=== PATIENT | male | born 1975 | race Caucasian/White ===

== ENCOUNTER 2023-10-28 11:17 | Emergency (ER) | payer OTHER ==
[2023-10-28 12:02] LABS: Absolute Eosinophils 0.2 K/uL (0-0.5); Absolute Lymphocytes (CBC) 3.4 K/uL (0.7-4.9); Absolute Monocytes 0.4 K/uL (0.1-1.3); Basophils % 0.5 % (0-1.3); Hematocrit 46.9 % (39.6-49.0); Lymphocytes % 42.6 % (15.3-44.8); MCH 28.8 pg (27.0-35.0); MCHC 34.2 g/dL (32.0-36.0); MCV 84.3 fL (80-100); MPV 9.3 fL (7.6-11.3); Monocytes % 5.5 % (3.3-12.3); Neutrophils % 49.4 % (41.7-73.7); Platelets 254 thou/uL (152-406); RBC Red Blood Cell Count 5.56 M/uL (4.33-5.43); Red Cell Distribution Width 14.6 % (12.1-15.2)
[2023-10-28 12:18] LABS: Albumin 3.7 g/dL (3.4-5.0); Bilirubin Total 0.6 mg/dL (0.2-1.0); Globulin 3.8 g/dL (2.3-3.5); Protein, Total 7.5 g/dL (6.4-8.2)
[2023-10-28] MEDS ORDERED: ONDANSETRON 4 MG/2 ML VIAL ONE (12:21)
[2023-10-28] MEDS ORDERED: KETOROLAC 30 MG/ML INJ ONE (12:22)
[2023-10-28] MEDS ORDERED: FAMOTIDINE 20 MG/2 ML VIAL IV ONE (12:22)
[2023-10-28] MEDS ORDERED: NA CHLORIDE 0.9% 1,000 ML ONE ×2 (12:22→15:20)
--- NOTE | 2023-10-28 13:50 | RAD REPORT ---
EXAM DESCRIPTION: CT - Abdomen Pelvis Wo Contrast - 10/28/2023 12:05 pm CLINICAL HISTORY: ABD PAIN COMPARISON: No comparisons TECHNIQUE: Thin cut axial CT imaging of the abdomen and pelvis was performed without IV contrast. Mu ltiplanar reformats were generated and reviewed. All CT scans are performed using dose optimization technique as appropriate and may include automated exposure control or mA/KV adjustment according to patient size. FINDINGS: No suspicious findings in the lung bases. The liver, spleen, adrenal glands, and pancreas show no suspicious findings. Gallbladder and biliary tree are also without suspicious finding. Symmetric renal contour, without suspicious parenchymal findings within limits of noncontrast techniq ue. No hydroureteronephrosis. Bilateral nonobstructing renal calculi the largest measuring 5 mm on th e left lower pole. No dilated bowel loops or bowel wall thickening. Mild distal colonic diverticulosis. No free air, ludwin e fluid or inflammatory stranding. Small supraumbilical midline hernia containing fat. No suspicious mass or bulky lymphadenopathy. The urinary bladder is without significant finding. No suspicious bony findings. IMPRESSION: Bilateral nonobstructing renal calculi, largest measuring 5 mm on the left. Incidental findings as above.
[2023-10-28] MEDS ORDERED: MORPHINE 4 MG/ML SYR ONE (14:20)
[2023-10-28 17:06] LABS: Specific Gravity 1.029 (1.005-1.030); Sqamous Epithelial None Seen /HPF (None Seen); Urine Bacteria None Seen /HPF (<20); Urine Bilirubin NEGATIVE (Negative); Urine Blood Negative (Negative); Urine Clarity Clear (Clear); Urine Color Yellow (Yellow); Urine Crystals Unidentified Few /HPF (None Seen); Urine Culture Reflex Order NOT NEEDED; Urine Glucose NEGATIVE (Negative); Urine Ketones NEGATIVE (Negative); Urine Microscopic Reflex YN ORDER UMIC; Urine Mucus 1+ /HPF (None Seen); Urine Nitrite NEGATIVE (Negative); Urine Protein TRACE (Negative); Urine RBC <5 /HPF (None Seen); Urine Urobilinogen Normal (Normal); Urine WBC <5 /HPF (<5)
--- NOTE | 2023-10-28 17:16 | ER ---
Nurse's Notes [facility] Name: Jacob Andrews Age: 48 yrs Sex: Male : 1975 Arrival Date: 10/28/2023 Time: 11:17 Bed DX3 Private MD: Diagnosis: Flank pain;Essential (primary) hypertension Presentation: 10/27 11:27 Chief complaint: Patient states: "For the past 2 years, I've been diagnosed with a mb9 kidney tumor. My right flank hurts and the pain is unbearable. I have a appointment tomorrow with a specialist but it hurts too bad. I feel nauseous". Coronavirus screen: At this time, the client does not indicate any symptoms associated with coronavirus-19. Ebola Screen: No symptoms or risks identified at this time. Initial Sepsis Screen: Does the patient meet any 2 criteria? No. Patient's initial sepsis screen is negative. Does the patient have a suspected source of infection? No. Patient's initial sepsis screen is negative. Risk Assessment: Do you want to hurt yourself or someone else? Patient reports no desire to harm self or others. Onset of symptoms was October 28, 2023. 11:27 Method Of Arrival: [facility] 11:27 Acuity: SYED 3 mb9 Triage Assessment: 11:29 General: Appears uncomfortable, Behavior is cooperative. Pain: Complains of pain in mb9 back Pain radiates to right flank. EENT: No signs and/or symptoms were reported regarding the EENT system. Neuro: Kramer Agitation-Sedation Scale (RASS): 0 - Alert and Calm Level of Consciousness is awake, alert, obeys commands, Oriented to person, place, time, situation, Appropriate for age. Cardiovascular: Patient's skin is warm and dry. Respiratory: Airway is patent Respiratory effort is even, unlabored, Respiratory pattern is regular, symmetrical. GI: Reports nausea. : No signs and/or symptoms were reported regarding the genitourinary system. Derm: Skin is pink, warm \\T\\ dry. Musculoskeletal: Range of motion: intact in all extremities. Historical: - Allergies: 11:28 No Known Allergies; mb9 - Home Meds: 11:28 Lisinopril Oral [Active]; Ozempic subcutaneous [Active]; mb9 - PMHx: 11:28 Diabetes mellitus; Tumor- right kidney; Cerebrovascular accident; Hypertensive disorder;mb9 11:33 Kidney stone; mb9 - PSHx: 11:28 None; mb9 - Immunization history:: Adult Immunizations up to date. - Infectious Disease History:: Denies. - Social history:: Smoking status: Patient reports the use of cigarette tobacco products, smokes one pack cigarettes per day. Screenin:24 [facility] ED Fall Risk Assessment (Adult) History of falling in the last 3 months, as6 including since admission No falls in past 3 months (0 pts) Confusion or Disorientation No (0 pts) Intoxicated or Sedated No (0 pts) Impaired Gait No (0 pts) Mobility Assist Device Used No (0 pt) Altered Elimination No (0 pt) Score/Fall Risk Level 0 - 2 = Low Risk Oriented to surroundings, Maintained a safe environment, Educated pt \\T\\ family on fall prevention, incl call for assistance when getting out of bed, Assessed \\T\\ reinforced patient's understanding of fall precautions. Abuse screen: Denies threats or abuse. Denies injuries from another. Nutritional screening: No deficits noted. Tuberculosis screening: No symptoms or risk factors identified. Assessment: 14:10 Reassessment: provider aware of pain Patient states symptoms have not improved. as6 17:20 Reassessment: Patient appears in no apparent distress at this time. Patient and/or as6 family updated on plan of care and expected duration. Pain level reassessed. Patient is alert, oriented x 3, equal unlabored respirations, skin warm/dry/pink. Patient states feeling better. Vital Signs: 11:27 BP 146 / 92; Pulse 86; Resp 18; Temp 98; Pulse Ox 97% ; Weight 90.72 kg; Height 5 ft. mb9 11 in. ; Pain 10/10; 13:30 BP 154 / 67; Pulse 81; Resp 18; Pulse Ox 99% ; as6 15:30 BP 139 / 72; Pulse 65; Resp 16; Pulse Ox 97% ; as6 17:22 BP 129 / 87; Pulse 75; Resp 18; Pulse Ox 96% ; as6 11:27 Body Mass Index 27.89 (90.72 kg, 180.34 cm) mb9 11:27 Pain Scale: Adult mb9 ED Course: 11:20 Patient arrived in ED. mr 11:21 Guillen, Buck, DO is Attending Physician. ms3 11:28 Triage completed. mb9 11:29 Arm band placed on. mb9 11:55 CBC with Diff Sent. bc6 11:55 CMP Sent. bc6 11:55 Initial lab(s) drawn, by me, sent to lab. Inserted saline lock: 20 gauge in right bc6 forearm, using aseptic technique. Blood collected. 12:01 CT Abd/Pelvis - Without Contrast In Process Unspecified. EDMS 14:24 Bed in low position. Call light in reach. as6 17:19 No provider procedures requiring assistance completed. IV discontinued, intact, as6 bleeding controlled, No redness/swelling at site. Pressure dressing applied. 17:20 Provided Education on: follow up. as6 Administered Medications: 12:27 Drug: NS 0.9% IV 1000 ml IV at 1 bolus Per protocol; 1000 mL bolus Route: IV; Rate: 1 as6 bolus; Site: right forearm; 17:23 Follow up: Response: No adverse reaction; IV Status: Completed infusion; IV Intake: as6 1000ml 12:27 Drug: Famotidine IVP 20 mg IVP once; dilute with 10 mL 0.9% NaCl; give over 2 minutes as6 Route: IVP; Site: right forearm; 17:23 Follow up: Response: No adverse reaction as6 12:28 Drug: TORadol - Ketorolac IVP 15 mg IVP once Route: IVP; Site: right forearm; as6 17:22 Follow up: Response: No adverse reaction as6 12:28 Drug: Ondansetron IVP 4 mg IVP once; over 2 minutes Route: IVP; Site: right forearm; as6 17:22 Follow up: Response: No adverse reaction as6 14:23 Drug: morphine IVP or IV 4 mg IVP once over 4 mins Route: IVP; Infused Over: 4 mins; as6 Site: right forearm; 17:23 Follow up: Response: No adverse reaction as6 15:22 Drug: NS 0.9% IV 1000 ml IV at 1 bolus Per protocol; 1000 mL bolus Route: IV; Rate: 1 as6 bolus; Site: right forearm; 17:23 Follow up: Response: No adverse reaction; IV Status: Completed infusion; IV Intake: as6 1000ml Medication: 14:24 VIS not applicable for this client. as6 Intake: 17:23 IV: 1000ml; Total: 1000ml. as6 17:23 IV: 1000ml; Total: 2000ml. as6 Outcome: 17:16 Discharge ordered by . ms3 17:19 Discharged to home ambulatory, as6 17:19 Condition: stable 17:19 Discharge instructions given to patient, Instructed on discharge instructions, follow up and referral plans. Demonstrated understanding of instructions, follow-up care, 17:23 Patient left the ED. as6 Signatures: Dispatcher [employer] EDMS Jayleen Sharpe, Rusty Ojeda mr GuillenBuck, DO ms3 Carmelo Chaves, RN RN as6 Jayleen Barry RN RN mb9 Laura Russo [facility]
--- NOTE | 2023-10-28 17:16 | EDPHYS ---
Physician Documentation [facility] Name: Jacob Andrews Age: 48 yrs Sex: Male : 1975 Arrival Date: 10/28/2023 Time: 11:17 Bed DX3 Private MD: ED Physician Buck Guillen HPI: 10/27 16:06 This 48 yrs old Male presents to ER via Ambulatory with complaints of Flank Pain. ms3 16:06 48-year-old male with past medical history of diabetes, right kidney tumor, CVA, ms3 hypertension presents to the emergency department for right flank pain that has been going on for 2 years. Patient states pain has become worse. He has an appointment with his urologist tomorrow. Patient states pain is 10/10. He denies any alleviating or inciting factors.. Historical: - Allergies: 11:28 No Known Allergies; mb9 - Home Meds: 11:28 Lisinopril Oral [Active]; Ozempic subcutaneous [Active]; mb9 - PMHx: 11:28 Diabetes mellitus; Tumor- right kidney; Cerebrovascular accident; Hypertensive disorder;mb9 11:33 Kidney stone; mb9 - PSHx: 11:28 None; mb9 - Immunization history:: Adult Immunizations up to date. - Infectious Disease History:: Denies. - Social history:: Smoking status: Patient reports the use of cigarette tobacco products, smokes one pack cigarettes per day. ROS: 16:06 Constitutional: Negative for fever, and chills. Neck: Negative for injury, pain, and ms3 swelling, Cardiovascular: Negative for chest pain, and palpitations. Respiratory: Negative for shortness of breath, cough, wheezing, and pleuritic chest pain, Abdomen/GI: Negative for abdominal pain, nausea, vomiting, diarrhea, and constipation, MS/Extremity: Negative for injury and deformity, Skin: Negative for injury, rash, and discoloration, 16:06 Back: Positive for flank pain, on the right, Exam: 16:06 Constitutional: This is a well developed, well nourished patient who is awake, alert, ms3 and in no acute distress. Chest/axilla: Normal chest wall appearance and motion. Nontender with no deformity. Cardiovascular: Regular rate and rhythm with a normal S1 and S2. No gallops, murmurs, or rubs. Normal PMI, no JVD. No pulse deficits. Respiratory: Lungs have equal breath sounds bilaterally, clear to auscultation and percussion. No rales, rhonchi or wheezes noted. No increased work of breathing, no retractions or nasal flaring. Abdomen/GI: Soft, non-tender, with normal bowel sounds. No distension or tympany. No guarding or rebound. No evidence of tenderness throughout. Skin: Warm, dry with normal turgor. Normal color with no rashes, no lesions, and no evidence of cellulitis. 16:06 Back: pain, that is moderate, of the right mid back, CVA tenderness, that is moderate, is noted on the right, Vital Signs: 11:27 BP 146 / 92; Pulse 86; Resp 18; Temp 98; Pulse Ox 97% ; Weight 90.72 kg; Height 5 ft. mb9 11 in. ; Pain 10/10; 13:30 BP 154 / 67; Pulse 81; Resp 18; Pulse Ox 99% ; as6 15:30 BP 139 / 72; Pulse 65; Resp 16; Pulse Ox 97% ; as6 17:22 BP 129 / 87; Pulse 75; Resp 18; Pulse Ox 96% ; as6 11:27 Body Mass Index 27.89 (90.72 kg, 180.34 cm) mb9 11:27 Pain Scale: Adult mb9 MDM: 11:44 Patient medically screened. ms3 16:06 Differential diagnosis: nephrolithiasis, pyelonephritis, UTI. ms3 17:16 Data reviewed: vital signs, nurses notes, lab test result(s), radiologic studies, and ms3 as a result, I will discharge patient. I considered the following discharge prescriptions or medication management in the emergency department Medications were administered in the Emergency Department. See MAR. Independent interpretation of the following test(s) in the Emergency Department CT Scan: My interpretation is CT abd/pelvis without contrast reviewed does not reveal hydronephrosis. Care significantly affected by the following chronic conditions: Diabetes, Hypertension. Counseling: I had a detailed discussion with the patient and/or guardian regarding the historical points, exam findings, and any diagnostic results supporting the discharge/admit diagnosis, lab results, radiology results, the need for outpatient follow up, to return to the emergency department if symptoms worsen or persist or if there are any questions or concerns that arise at home. Special discussion: I discussed with the patient/guardian in detail that at this point there is no indication for admission to the hospital. It is understood, however, that if the symptoms persist or worsen the patient needs to return immediately for re-evaluation. ED course: Discussed imaging and labs with patient. Patient to follow-up with his urologist tomorrow as scheduled. All questions were answered. Return precautions discussed include worsening symptoms, or any other concerns. On reevaluation patient is alert and orient x 4, no apparent distress, nontoxic-appearing, speaking full sentences. 10/27 11:35 Order name: CBC with Diff; Complete Time: 14:19 ms3 10/27 11:35 Order name: CMP; Complete Time: 14:19 ms3 10/27 11:35 Order name: Urinalysis w/ reflexes; Complete Time: 17:13 ms3 10/27 11:35 Order name: CT Abd/Pelvis - Without Contrast; Complete Time: 14:19 ms3 10/27 11:35 Order name: IV Saline Lock; Complete Time: 11:55 ms3 10/27 11:35 Order name: Labs collected and sent; Complete Time: 11:55 ms3 Administered Medications: 12:27 Drug: NS 0.9% IV 1000 ml IV at 1 bolus Per protocol; 1000 mL bolus Route: IV; Rate: 1 as6 bolus; Site: right forearm; 17:23 Follow up: Response: No adverse reaction; IV Status: Completed infusion; IV Intake: as6 1000ml 12:27 Drug: Famotidine IVP 20 mg IVP once; dilute with 10 mL 0.9% NaCl; give over 2 minutes as6 Route: IVP; Site: right forearm; 17:23 Follow up: Response: No adverse reaction as6 12:28 Drug: TORadol - Ketorolac IVP 15 mg IVP once Route: IVP; Site: right forearm; as6 17:22 Follow up: Response: No adverse reaction as6 12:28 Drug: Ondansetron IVP 4 mg IVP once; over 2 minutes Route: IVP; Site: right forearm; as6 17:22 Follow up: Response: No adverse reaction as6 14:23 Drug: morphine IVP or IV 4 mg IVP once over 4 mins Route: IVP; Infused Over: 4 mins; as6 Site: right forearm; 17:23 Follow up: Response: No adverse reaction as6 15:22 Drug: NS 0.9% IV 1000 ml IV at 1 bolus Per protocol; 1000 mL bolus Route: IV; Rate: 1 as6 bolus; Site: right forearm; 17:23 Follow up: Response: No adverse reaction; IV Status: Completed infusion; IV Intake: as6 1000ml Disposition Summary: 10/28/23 17:16 Discharge Ordered Notes: Location: Home ms3 Condition: Stable ms3 Diagnosis - Flank pain ms3 - Essential (primary) hypertension ms3 Followup: ms3 - With: Private Physician - When: 1 - 2 days - Reason: Recheck today's complaints Discharge Instructions: - Discharge Summary Sheet ms3 - Hypertension, Adult ms3 - Flank Pain, Adult, [id number] ms3 - DASH Eating Plan ms3 Forms: - Medication Reconciliation Form ms3 - Antibiotic Education ms3 - Prescription Opioid Use ms3 - Patient Portal Instructions ms3 - Leadership Thank You Letter ms3 Signatures: Dispatcher [employer] EDBuck Rico DO DO ms3 Carmelo Chaves RN RN as6 Jayleen Barry RN RN mb9 Corrections: (The following items were deleted from the chart) 11:35 11:35 Abdomen Pelvis Wo Con+CT.RAD.BRZ ordered. EDMS EDMS
[2023-10-28 17:45] VITALS: TEMP 98
[2023-10-28 18:05] VITALS: BP 129/87; O2SAT 96
== END 2023-10-28 17:23 | disposition home or self-care (01) ==
LOC: ER 11:17
DX: R10.31 Right lower quadrant pain (principal); I10 Essential (primary) hypertension
CPT/HCPCS: 85025; 81001; 36415; 80053; 74176; J2405; J7030 ×2